=== PATIENT | female | born 1995 | race Caucasian/White ===

== ENCOUNTER 2021-01-01 23:11 | Day surgery (SDCO) | payer OTHER ==
[~2021-01-01] VITALS: Ht 154.9 cm; Wt 69.5 kg
[2021-01-01 23:32] LABS: BASOPHIL 0.2 % (0-2); EOSINOPHIL 0.9 % (0-5); HCT 41.5 % (37.0-47.0); HGB 13.6 g/dl (12.5-16.0); LYMPHOCYTE 40.4 % (15-48); MCH 29.2 pg (25.0-31.0); MCHC 32.8 g/dL (32.0-36.0); MCV 89.2 fL (78.0-100.0); MONOCYTE 2.6 % (0-12); MPV 10.8 fL (6.0-9.5); NEUTROPHIL 55.6 % (41-80); NRBC 0; PLT 321 K/uL (150-400); RBC 4.65 M/uL (4.20-5.40); WBC 12.5 K/uL (4.0-10.5)
[2021-01-01 23:57] LABS: LACTIC ACID 4.1 mmol/L (0.4-1.9)
[2021-01-01 23:59] LABS: BILIRUBIN NEGATIVE (NEGATIVE); BLOOD NEGATIVE Ery/uL (NEGATIVE); CLARITY CLEAR (CLEAR); COLOR YELLOW (YELLOW); GLUCOSE (U) NORMAL (NORMAL); LEUKOCYTES NEGATIVE Leu/uL (NEGATIVE); NITRITE NEGATIVE (NEGATIVE); PROTEIN TRACE (LOW) mg/dL (NEGATIVE); SPECIFIC GRAVITY 1.025 (1.001-1.030); UROBILINOGEN 0.2 mg/dL (0.2-1.0)
[2021-01-02 00:02] LABS: ALBUMIN 3.2 g/dL (3.4-5.0); ALKALINE PHOSHATASE 118 U/L (46-116); ALT 17 U/L (14-59); AST 29 U/L (15-37); BILIRUBIN - TOTAL 0.2 mg/dL (0.2-1.0); BUN 10 mg/dL (7-18); BUN/CREAT RATIO (CALC) 14.5 RATIO; CHLORIDE 106 mmol/L (98-107); CO2 (BICARBONATE) 22 mmol/L (21-32); CREATININE 0.69 mg/dL (0.51-0.95); GLOBULIN (CALCULATION) 3.4 g/dL; GLUCOSE 187 mg/dL (74-106); TOTAL PROTEIN 6.6 g/dL (6.4-8.2)
[2021-01-02 00:03] LABS: AMPHETAMINES NEGATIVE (NEGATIVE); BARBITURATES NEGATIVE (NEGATIVE); ECSTASY (MDMA) NEGATIVE (NEGATIVE); MARIJUANA (THC) NEGATIVE (NEGATIVE); METHADONE NEGATIVE (NEGATIVE); OPIATES NEGATIVE (NEGATIVE); OXYCODONE NEGATIVE (NEGATIVE)
[2021-01-02 00:04] LABS: ACETAMINOPHEN (TYLENOL) < 2.0 ug/mL (10.0-30.0)
[2021-01-02] MEDS ORDERED: FOLIC ACID0.4 MG PO (04:48)
[2021-01-02] MEDS ORDERED: LEVOTHYROXINE50 MC1 PO (04:48)
[2021-01-02 07:52] LABS: BASOPHIL 0.2 % (0-2); EOSINOPHIL 0.2 % (0-5); HCT 37.1 % (37.0-47.0); HGB 12.1 g/dl (12.5-16.0); LYMPHOCYTE 10.9 % (15-48); MCH 29.7 pg (25.0-31.0); MCHC 32.6 g/dL (32.0-36.0); MCV 90.9 fL (78.0-100.0); MONOCYTE 4.1 % (0-12); MPV 10.5 fL (6.0-9.5); NEUTROPHIL 84.2 % (41-80); PLT 285 K/uL (150-400); RBC 4.08 M/uL (4.20-5.40); RDW 12.1 % (11.5-14.0); WBC 12.3 K/uL (4.0-10.5)
[2021-01-02 08:09] LABS: ALBUMIN 3.1 g/dL (3.4-5.0); BILIRUBIN - TOTAL 0.3 mg/dL (0.2-1.0); BUN/CREAT RATIO (CALC) 7.8 RATIO; C-REACTIVE PROTEIN 1.6 mg/dL (<=0.90); CREATININE 0.64 mg/dL (0.51-0.95); GLOBULIN (CALCULATION) 2.9 g/dL; MAGNESIUM 1.7 mg/dL (1.8-2.4); PHOSPHORUS 2.9 mg/dL (2.6-4.7)
[2021-01-02 08:34] LABS: LYMPHOCYTE(M) 14 % (15-48); NEUTROPHILS(M) 86 % (41-80); NRBC 0; TOTAL CELL COUNT 100
[2021-01-02 08:35] LABS: PLATELET ESTIMATE NORMAL; PLATELET MORPHOLOGY NORMAL
[2021-01-03 07:22] LABS: EOSINOPHIL 3.8 % (0-5); HCT 33.8 % (37.0-47.0); HGB 10.7 g/dl (12.5-16.0); LYMPHOCYTE 41.9 % (15-48); MCH 29.2 pg (25.0-31.0); MCHC 31.7 g/dL (32.0-36.0); MCV 92.3 fL (78.0-100.0); MONOCYTE 8.7 % (0-12); NEUTROPHIL 44.3 % (41-80); NRBC 0; PLT 246 K/uL (150-400); RBC 3.66 M/uL (4.20-5.40); RDW 12.4 % (11.5-14.0); WBC 7.2 K/uL (4.0-10.5)
[2021-01-03 07:58] LABS: ALBUMIN 2.8 g/dL (3.4-5.0); BILIRUBIN - TOTAL 0.2 mg/dL (0.2-1.0); BUN/CREAT RATIO (CALC) 2.9 RATIO; CREATININE 0.7 mg/dL (0.51-0.95); GLOBULIN (CALCULATION) 2.9 g/dL; POTASSIUM 3.5 mmol/L (3.5-5.1); TOTAL PROTEIN 5.7 g/dL (6.4-8.2)
[2021-01-04] MEDS ORDERED: METRONIDAZOLE500 MG PO (14:33)
[2021-01-04] MEDS ORDERED: VALTREX500 MG PO (14:33)
[2021-01-04] MEDS ORDERED: NORCO 5-325 TA1 EACH PO (14:33)
[2021-01-04] MEDS ORDERED: ZOFRAN4 M1 PO (14:33)
[2021-01-04] MEDS ORDERED: LEVAQUIN750 MG PO (14:33)
--- NOTE | 2021-01-04 15:16 | NUR ---
CALL TO DR CANELA ABOUT F/U FOR PATIENT, SHE IS GOING TO FOLLOW PT OUTPATIENT PATIENT DESIRES TO CONTINUE WITH HER, WANTS TO SEE HER IN 4-6 WEEKS
== END 2021-01-04 15:49 | disposition home or self-care (01) ==
LOC: FER 23:11 → FMS 01-02 03:53
PROVIDERS: Emergency Medicine; Nurse Practitioner; ADMIT Internal Medicine
DX: A41.9 Sepsis, unspecified organism (principal); K52.9 Noninfective gastroenteritis and colitis, unspecified; N83.202 Unspecified ovarian cyst, left side; R55 Syncope and collapse; I95.9 Hypotension, unspecified; R00.0 Tachycardia, unspecified; E03.9 Hypothyroidism, unspecified; F41.9 Anxiety disorder, unspecified; J45.909 Unspecified asthma, uncomplicated; N97.0 Female infertility associated with anovulation; B00.1 Herpesviral vesicular dermatitis; Z20.828 Contact with and (suspected) exposure to other viral communicable diseases; Z79.899 Other long term (current) drug therapy; Z88.0 Allergy status to penicillin; Z88.1 Allergy status to other antibiotic agents
CPT/HCPCS: 36415; 70450; 71275; 76830; 80053; 80305; 81003; 83036; 83605; 83615; 83735; 84100; 84145; 84484; 85025; 86140; 87040; 87045; 87046; 87205; 87449; 93005; 94010; C9113; G0378; G0480; J0692; J1953; J2270; J2405; J3370; J7030; J7050; Q9967; U0002

== ENCOUNTER → 2021-02-23 | Day surgery (SDC) | payer OTHER ==
[~2021-02-23] VITALS: Ht 154.9 cm; Wt 66.4 kg
[~2021-02-23] MED LIST: COLACE100 MG PO; FOLIC ACID0.4 MG PO; IBUPROFEN800 M1 PO; LEVAQUIN750 MG PO; LEVOTHYROXINE50 MC1 PO; METRONIDAZOLE500 MG PO; NORCO 5-325 TA1 EACH PO; PERCOCET 5-3251 EACH PO; PROGESTERONE200 MG PO; VALTREX500 MG PO; ZOFRAN4 M1 PO
[2021-02-23 08:18] LABS: HCG (URINE) SCREEN NEGATIVE (NEGATIVE)
== END | disposition home or self-care (01) ==
LOC: FAS 08:00
PROVIDERS: Anesthesiology
DX: N83.202 Unspecified ovarian cyst, left side (principal); N97.0 Female infertility associated with anovulation; B00.9 Herpesviral infection, unspecified; K58.9 Irritable bowel syndrome, unspecified; E03.9 Hypothyroidism, unspecified; J30.9 Allergic rhinitis, unspecified; Z88.0 Allergy status to penicillin; Z88.1 Allergy status to other antibiotic agents; Z91.014 Allergy to mammalian meats; Z79.899 Other long term (current) drug therapy
CPT/HCPCS: 84703; J1100; J1885; J2250; J2405; J2704; J2710; J3010; J7050; J7120